=== PATIENT | female | born 1960 | race Caucasian/White ===

== ENCOUNTER → 2016-12-21 | Outpatient (CLI) | payer BC ==
--- NOTE | 2016-12-21 12:55 | XR ---
EXAMINATION TYPE: XR chest 2V DATE OF EXAM: 12/21/2016 11:56 AM COMPARISON: 10/18/2011 TECHNIQUE: PA and lateral views submitted. HISTORY: Shortness of breath and cough FINDINGS: The lungs are clear and there is no pneumothorax, pleural effusion, or focal pneumonia. Hypertrophi c change of the spine. No overt failure. IMPRESSION: 1. No acute process.
== END ==
LOC: RADXRMAIN 11:37
PROVIDERS: ATTEND Internal Medicine
DX: R05 Cough (principal); R06.02 Shortness of breath
CPT/HCPCS: 71020

== ENCOUNTER → 2017-03-05 | Outpatient (CLI) | payer BC ==
--- NOTE | 2017-03-05 14:52 | BD ---
EXAMINATION TYPE: MG DEXA axial skeleton. DATE OF EXAM: 03/05/2017 COMPARISON: NONE CLINICAL HISTORY: Z78.0 POST MENOPAUSAL WITHOUT HRT Height: 5 FT 2 1/2 IN Weight: 212 FRAX RISK QUESTIONS: Alcohol (3 or more units per day): NO Family History (Parent hip fracture): NO Glucocorticoids (More than 3mos): NO (Ex: prednisone, prednisolone, methylprednisolone, dexamethasone, and hydrocortisone). History of Fracture in Adulthood: NO Secondary Osteoporosis: 1. Type 1 Diabetes: NO 2. Hyperthyroidism: NO 3. Menopause before 45: NO 4. Malnutrition: NO 5. Chronic liver disease: NO Rheumatoid Arthritis: NO Current Tobacco Use: NO RISK FACTORS HISTORY OF: Family History of Osteoporosis: YES Active: YES Postmenopausal woman: TOTAL HYST AGE 47 Take estrogen and/or progesterone medications: YES How lon YRS MEDICATIONS: How Long: Additional Medications: PREMARIN,METFORMIN,LOSARTIN, XOLAIR INJECTION,GLIMEPERIDE, SINGULAIR Additional History: EXAM MEASUREMENTS: Bone mineral densitometry was performed using the [employer] System. Bone mineral density as measured about the Lumbar spine is: ----- L1-L4(G/cm2): 1.226 T Score Values are as follows: ----- L2: -0.2 ----- L3: -0.1 ----- L4: 0.8 ----- L1-L4: 0.3 Bone mineral density has: Increased 8.4% since study of: 2013 Bone mineral density about the R hip (g/cm2): 0.973 Bone mineral density about the L hip (g/cm2): 0.916 T Score values are as follows: -----R Neck: -0.5 -----L Neck: -0.9 -----R Total: 0.5 -----L Total: -0.1 Bone mineral density has: Increased 1.0% since study of: 2013 IMPRESSION: No evidence for osteoporosis or osteopenia. NOTE: T-SCORE=SD OF THE YOUNG ADULT MEAN.
--- NOTE | 2017-03-06 13:57 | MM ---
Reason for exam: screening (asymptomatic). Last mammogram was performed 1 year and 4 months ago. History: Patient is postmenopausal. Benign left mammotome panel of the left breast, May 16, 2010. Took hormonal contraceptives for 7 years. Taking estrogen for 8 years 6 months beginning at age 47. Took progesterone for 8 years 6 months beginning at age 47. Physical Findings: A clinical breast exam by your physician is recommended on an annual basis and results should be correlated with mammographic findings. MG Screening Mammo w CAD Bilateral CC and MLO view(s) were taken. Prior study comparison: November 11, 2015, bilateral MG screening mammo w CAD. September 30, 2013, [facility] DIGITAL RIGHT MAMMOGRAM w/CAD. The breast tissue is almost entirely fat. Finding: There are grouped/clustered calcifications in the right breast. Previous mammotome biopsy in the left breast. Asymmetric breast tissue in the left breast. Increase in number of calcifications since November 11, 2015 and September 30, 2013. ASSESSMENT: Incomplete: need additional imaging evaluation, BI-RAD 0 RECOMMENDATION: Special view mammogram of the right breast. [facility] will attempt to contact patient to return for supplemental views.
== END | disposition home or self-care (01) ==
LOC: RADMAMWWP 13:26
PROVIDERS: ATTEND Obstetrics & Gynecology
DX: Z12.31 Encounter for screening mammogram for malignant neoplasm of breast (principal); Z78.0 Asymptomatic menopausal state
CPT/HCPCS: 77080; G0202

== ENCOUNTER → 2017-03-15 | Outpatient (CLI) | payer BC ==
--- NOTE | 2017-03-15 14:02 | MM ---
Reason for exam: additional evaluation requested from abnormal screening. Last mammogram was performed less than 1 month ago. History: Patient is postmenopausal. Benign left mammotome panel of the left breast, May 16, 2010. Took hormonal contraceptives for 7 years. Taking estrogen for 8 years 6 months beginning at age 47. Took progesterone for 8 years 6 months beginning at age 47. Physical Findings: Nurse did not find any significant physical abnormalities on exam. MG 3D Work Up W/Cad RT CC and MLO view(s) were taken of the right breast. Prior study comparison: March 05, 2017, bilateral MG screening mammo w CAD. November 11, 2015, bilateral MG screening mammo w CAD. Finding: There are intermediate concern, suspicious, heterogeneous calcifications in the lower quadrant, middle position of the right breast. These results were verbally communicated with the patient and result sheet given to the patient on 03/15/17. ASSESSMENT: Suspicious, BI-RAD 4 RECOMMENDATION: Stereotactic core biopsy of the right breast. Called Dr. Gutierres with mammographic findings and has scheduled an appointment for the patient for 03/27/17 at 12:[address] Martinez. PRELIMINARY REPORT CALLED AND FAXED TO DR. MARTINEZ ON 03/15/17 /TP.
== END | disposition home or self-care (01) ==
LOC: RADMAMWWP 12:54
PROVIDERS: ATTEND Obstetrics & Gynecology
DX: R92.8 Other abnormal and inconclusive findings on diagnostic imaging of breast (principal)
CPT/HCPCS: G0206; G0279

== ENCOUNTER → 2017-04-02 | Day surgery (SDC) | payer BC ==
[2017-04-02 10:25] VITALS: BMI 36.3
[2017-04-02 11:52] VITALS: BP 130/80; PULSE 80; RESP 18; TEMP 98
--- NOTE | 2017-04-02 20:38 | PCN ---
PRE-PROCEDURE DIAGNOSIS: Suspicious mammogram; calcifications in right breast. POST-PROCEDURE DIAGNOSIS: Defer to Pathology. PROCEDURE: Mammotome biopsy and clip application. This patient presented with an abnormal mammogram of her right breast that showed suspicious new calcifications. The patient was taken to [facility] She was placed on the mammotome table in supine position. After coordinates were obtained by the radiologist, the skin was cleaned with Betadine. After infiltrating the skin with Marcaine 0.25% plain, the mammotome was advanced according to coordinates. Multiple cores were taken. X-rays of the cores showed the suspicious calcifications. Clip was placed for future identification of the area. X-rays showed the clip in good position. Patient tolerated the procedure well. DEISI
--- NOTE | 2017-04-03 12:30 | MM ---
EXAMINATION TYPE: MG stereo VAD BX RT DATE OF EXAM: 04/02/2017 COMPARISON: 03/15/2017 mammogram CLINICAL HISTORY: Indeterminate right breast calcifications for which stereotactic guided biopsy was recommended. TECHNIQUE: Stereotactic guided core biopsy of right breast. FINDINGS: The procedure of stereotactic guided core biopsy was explained to the patient. Benefits, a lternatives, and risks were discussed. An informed consent was then obtained. The shortness pathway for biopsy was chosen. Shortness pathway was inferior approach. I performed th e localization, then surgeon, Dr. Martinez performed the remainder of the procedure. A vacuum assi sted biopsy gun was used to obtain multiple core samples. The patient tolerated the procedure well without any immediate complication. The patient was kept in the radiology department for short stay after the procedure and then discharged home in stable condi tion. Targeted calcifications are identified in specimen mammogram. Post biopsy mammogram shows the clip to appear in satisfactory position relative to the targeted area of concern on the preprocedure images. IMPRESSION: SUCCESSFUL, UNCOMPLICATED STEREOTACTIC GUIDED CORE BIOPSY OF AREA OF CONCERN IN THE RIGHT BREAST, FUL L PATHOLOGY RESULTS TO FOLLOW.
== END ==
LOC: RADMAMWWP 09:56
PROVIDERS: ATTEND Surgery
DX: D24.1 Benign neoplasm of right breast (principal); N62 Hypertrophy of breast; R92.8 Other abnormal and inconclusive findings on diagnostic imaging of breast; N60.31 Fibrosclerosis of right breast; N60.01 Solitary cyst of right breast; N60.21 Fibroadenosis of right breast; N64.1 Fat necrosis of breast; N64.89 Other specified disorders of breast; Z88.0 Allergy status to penicillin; Z88.8 Allergy status to other drugs, medicaments and biological substances
CPT/HCPCS: 88305

== ENCOUNTER → 2017-11-23 | Outpatient (CLI) | payer BC ==
--- NOTE | 2017-11-23 08:49 | MM ---
Reason for exam: follow-up at short interval from prior study. Last mammogram was performed 8 months ago. History: Patient is postmenopausal. Benign MG stereo VAD BX RT of the right breast, April 02, 2017. Benign left mammotome panel of the left breast, May 16, 2010. Took hormonal contraceptives for 7 years. Taking estrogen for 8 years 6 months beginning at age 47. Took progesterone for 8 years 6 months beginning at age 47. Physical Findings: Nurse did not find any significant physical abnormalities on exam. MG 3D Diag Mammo W/Cad RT CC and MLO view(s) were taken of the right breast. Prior study comparison: March 15, 2017, right breast MG 3d work up w/cad RT. March 05, 2017, bilateral MG screening mammo w CAD. There are scattered fibroglandular densities. Previous mammotome biopsy in the right breast. There is no discrete abnormality. No significant new findings when compared with previous films. These results were verbally communicated with the patient and result sheet given to the patient on 11/23/17. ASSESSMENT: Benign, BI-RAD 2 RECOMMENDATION: Return to routine screening mammogram schedule for both breasts. Back on schedule.
== END | disposition home or self-care (01) ==
LOC: RADMAMWWP 08:03
PROVIDERS: ATTEND Obstetrics & Gynecology
DX: R92.8 Other abnormal and inconclusive findings on diagnostic imaging of breast (principal)
CPT/HCPCS: 77065; G0279

== ENCOUNTER 2018-01-04 06:50 | Day surgery (SDC) | payer BC ==
[2018-01-02 12:01] VITALS: BMI 37.4
[~2018-01-04 06:50] MED LIST: LACTATED RINGERS 1,000 ML IV SCH
[2018-01-04 07:16] VITALS: TEMP 98.1
[2018-01-04] MEDS ORDERED: LACTATED RINGERS 1,000 ML IV ONE (07:17)
[2018-01-04 07:19] LABS: Glucose,Whole Blood 165 mg/dL (75-99)
[2018-01-04] MEDS ORDERED: ONDANSETRON 4 MG/2 ML VIAL IVP ONE (07:29)
[2018-01-04] MEDS ORDERED: ONDANSETRON 4 MG/2 ML VIAL IVP STA (07:33)
[2018-01-04] MEDS ORDERED: PROPOFOL 10 MG/ML 20 ML VIAL IV ONE (07:37)
[2018-01-04] MEDS ORDERED: LIDOCAINE 1% INJ 10MG/ML (20 ML MDV) ONE (07:37)
--- NOTE | 2018-01-04 07:39 | P.GSHP ---
History of Present Illness H&P Date: 01/04/18 Chief Complaint: Colon cancer screening Patient here today for colonoscopy. Last colonoscopy performed 5 years ago. She had a hyperplastic polyp and a polyp that turned out to represent a hamartoma at that time. No bowel related complaints. No family history of colon cancer. Past Medical History Past Medical History: Asthma, Diabetes Mellitus, Hyperlipidemia, Hypertension, Thyroid Disorder History of Any Multi-Drug Resistant Organisms: None Reported Past Surgical History: Hysterectomy Additional Past Surgical History / Comment(s): left Bunion shaved in 2014, trigger thumb repair 2013 Past Anesthesia/Blood Transfusion Reactions: Family History of Problems w/ Anesthesia, Motion Sickness, Postoperative Nausea & Vomiting (PONV) Additional Past Anesthesia/Blood Transfusion Reaction / Comment(s): FAMILY- N & V Smoking Status: Never smoker - Past Family History Mother Family Medical History: Coronary Artery Disease (CAD) Additional Family Medical History / Comment(s): CABG Medications and Allergies Home Medications Medication Instructions Recorded Confirmed Type Albuterol Nebulized [Ventolin 1 applicate INHALATION QID PRN 11/05/14 01/04/18 History Nebulized] Albuterol Sulfate [Proair Hfa] 1 puff INHALATION QID PRN 11/05/14 01/04/18 History Glimepiride [Amaryl] 4 mg PO AC-BID 11/05/14 01/04/18 History Levothyroxine Sodium [Synthroid] 175 mcg PO QAM 11/05/14 01/04/18 History Losartan [Cozaar] 50 mg PO QAM 11/05/14 01/04/18 History Lovastatin [Mevacor] 40 mg PO HS 11/05/14 01/04/18 History Montelukast [Singulair] 10 mg PO HS 11/05/14 01/04/18 History Omalizumab [Xolair] 1 injection SQ QMONTH 11/05/14 01/04/18 History metFORMIN HCL 1,000 mg PO BID 03/28/17 01/04/18 History Doxycycline Hyclate [Doryx] 100 mg PO BID 01/02/18 01/04/18 History Allergies Allergy/AdvReac Type Severity Reaction Status Date / Time adhesive Allergy Mild Rash/Hives Verified 01/04/18 07:14 Penicillins Allergy Mild Rash/Hives. Verified 01/04/18 07:14 SWELLING. povidone-iodine Allergy Rash/Hives Verified 01/04/18 07:14 [From Betadine] soap [From Betadine] Allergy Rash/Hives Verified 01/04/18 07:14 Surgical - Exam Vital Signs Temp Pulse Resp BP Pulse Ox 98.1 F 84 18 125/76 95 01/04/18 07:14 01/04/18 07:14 01/04/18 07:14 01/04/18 07:14 01/04/18 07:14 Physical exam: General: Well-developed, well-nourished HEENT: Normocephalic, sclerae nonicteric Abdomen: Nontender, nondistended Extremities: No edema Neuro: Alert and oriented Results - Labs Abnormal Lab Results - Last 24 Hours (Table) 01/04/18 Range/Units 07:15 POC Glucose (mg/dL) 165 H (75-99) mg/dL Assessment and Plan (1) Colon cancer screening Narrative/Plan: Will proceed with colonoscopy at this time. Current Visit: Yes Status: Acute Code(s): Z12.11 - ENCOUNTER FOR SCREENING FOR MALIGNANT NEOPLASM OF COLON SNOMED Code(s): 129619071
--- NOTE | 2018-01-04 07:56 | P.PCN ---
Date of Procedure: 01/04/18 Procedure(s) Performed: PREOPERATIVE DIAGNOSIS: Colon cancer screening POSTOPERATIVE DIAGNOSIS: Poor prep PROCEDURE: Colonoscopy ANESTHESIA: MAC SURGEON: Maxwell Jimenez M.D. SPECIMENS: None ENDOSCOPIC PROCEDURE: The patient was placed on the endoscopy table in the left decubitus position. The Olympus colonoscope was inserted into the anus and passed under direct visualization to the base of the cecum. The appendiceal orifice was visualized. From that point the scope was slowly withdrawn inspecting all surfaces carefully. The patient's prep was suboptimal with retained stool seen scattered throughout. Much of the stool was thick enough that this could not be irrigated and cleaned. No large polyps or masses were seen throughout the cecum, ascending, transverse, descending, sigmoid and rectum. There was no diverticulosis noted. Digital rectal examination was normal. The patient was taken to the recovery room in stable condition per anesthesia guidelines. RECOMMENDATIONS: Increase fiber. Consider short-term follow-up given the poor prep today.
[2018-01-04 08:03] VITALS: RESP 16
[2018-01-04 08:15] VITALS: BP 121/70; PULSE 91
== END 2018-01-04 08:40 | disposition home or self-care (01) ==
LOC: ORWHC2ENDO 06:50
PROVIDERS: ATTEND Surgery
DX: Z12.11 Encounter for screening for malignant neoplasm of colon (principal); J45.909 Unspecified asthma, uncomplicated; E11.9 Type 2 diabetes mellitus without complications; E78.5 Hyperlipidemia, unspecified; I10 Essential (primary) hypertension; E07.9 Disorder of thyroid, unspecified; Z79.84 Long term (current) use of oral hypoglycemic drugs; Z79.890 Hormone replacement therapy; Z79.899 Other long term (current) drug therapy; Z79.2 Long term (current) use of antibiotics; Z88.0 Allergy status to penicillin; Z91.048 Other nonmedicinal substance allergy status; Z91.09 Other allergy status, other than to drugs and biological substances
CPT/HCPCS: J2405; J2001; J2704; G0121

== ENCOUNTER → 2019-03-12 | Outpatient (CLI) | payer BC ==
--- NOTE | 2019-03-12 13:11 | MM ---
Reason for exam: screening (asymptomatic). Last mammogram was performed 1 year and 4 months ago. History: Patient is postmenopausal. Benign MG stereo VAD BX RT of the right breast, April 02, 2017. Benign left mammotome panel of the left breast, May 16, 2010. Took hormonal contraceptives for 7 years. Taking estrogen for 8 years 6 months beginning at age 47. Took progesterone for 8 years 6 months beginning at age 47. Physical Findings: A clinical breast exam by your physician is recommended on an annual basis and results should be correlated with mammographic findings. MG 3D Screening Mammo W/Cad Bilateral CC and MLO view(s) were taken. Prior study comparison: November 23, 2017, right breast MG 3d diag mammo w/cad RT. March 15, 2017, right breast MG 3d work up w/cad RT. There are scattered fibroglandular densities. Previous mammotome biopsy in the right and left breast. Asymmetric breast tissue left breast at clip upper outer quadrant. There is no discrete abnormality. ASSESSMENT: Benign, BI-RAD 2 RECOMMENDATION: Routine screening mammogram of both breasts in 1 year.
== END | disposition home or self-care (01) ==
LOC: RADMAMWWP 07:40
PROVIDERS: ATTEND Obstetrics & Gynecology
DX: Z12.31 Encounter for screening mammogram for malignant neoplasm of breast (principal)
CPT/HCPCS: 77063; 77067

== ENCOUNTER → 2021-07-28 | Outpatient (CLI) | payer BC ==
--- NOTE | 2021-08-01 10:23 | MM ---
Reason for exam: screening (asymptomatic). Last mammogram was performed 1 year and 3 months ago. History: Patient is postmenopausal. Benign MG stereo VAD BX RT of the right breast, April 02, 2017. Benign left mammotome panel of the left breast, May 16, 2010. Took hormonal contraceptives for 7 years. Taking estrogen for 12 years beginning at age 47. Took progesterone for 12 years beginning at age 47. Physical Findings: A clinical breast exam by your physician is recommended on an annual basis and results should be correlated with mammographic findings. MG 3D Screening Mammo W/Cad Bilateral CC and MLO view(s) were taken. Prior study comparison: April 16, 2020, bilateral MG 3d screening mammo w/cad. March 12, 2019, bilateral MG 3d screening mammo w/cad. There are scattered fibroglandular densities. Previous mammotome biopsy in the right and left breast. Focal asymmetry, stable on left. ASSESSMENT: Benign, BI-RAD 2 RECOMMENDATION: Routine screening mammogram of both breasts in 1 year.
== END | disposition home or self-care (01) ==
LOC: RADMAMWWP 13:21
PROVIDERS: ATTEND Obstetrics & Gynecology
DX: Z12.31 Encounter for screening mammogram for malignant neoplasm of breast (principal)
CPT/HCPCS: 77063; 77067

== ENCOUNTER → 2022-07-31 | Outpatient (CLI) | payer BC ==
--- NOTE | 2022-07-31 10:31 | BD ---
EXAMINATION TYPE: Axial Bone Density DATE OF EXAM: 07/31/2022 COMPARISON: 03.05.2017 CLINICAL HISTORY: 61 years year old Female. ICD-10 CODE: N95.1 MENOPAUSAL Height: 62 Weight: 187 FRAX RISK QUESTIONS: Glucocorticoids (More than 3mos): YES (Ex: prednisone, prednisolone, methylprednisolone, dexamethasone, and hydrocortisone). RISK FACTORS HISTORY OF: Family History of Osteoporosis: YES NO FX Postmenopausal woman: TOTAL HYST AT 46 YRS OLD Take estrogen and/or progesterone medications: YES SINCE 46 YRS OLD...STILL TAKING How lon YRS Hyperparathyroidism: NO Adrenal Insufficiency: NO MEDICATIONS: Prednisone or other steroids: YES, FOR ASTHMA FOR ABOUT 15 YRS Thyroid Medications: YES, FOR ABOUT 25 YRS ON SYNTHROID Additional Medications: BP MEDS, METFORMIN, RYBELSIS, GLIMEPIRIDE, STATIN FOR CHOLESTEROL, VIT D AN D CALCIUM, Additional History: DIABETIC, ASTHMA, THYROID, HYPERTENSION, CHOLESTEROL, EXAM MEASUREMENTS: Bone mineral densitometry was performed using the [employer] System. Bone mineral density as measured about the Lumbar spine is: ----- L1-L4(G/cm2): 1.202 T Score Values are as follows: ----- L1: 0.4 ----- L2: -0.2 ----- L3: -0.8 ----- L4: 1.0 ----- L1-L4: 0.2 Bone mineral density has: Decreased -1.2% since study of: 03.05.2017 Bone mineral density about the R hip (g/cm2): 0.986 Bone mineral density about the L hip (g/cm2): 0.948 T Score values are as follows: -----R Neck: -0.5 -----L Neck: -0.9 -----R Total: -0.2 -----L Total: -0.5 Bone mineral density has: Decreased -6.0% since study of: 03.05.2017 FRAX%s: The graph provided illustrates a 11.4% chance for a major osteoporotic fx and a 0.8% chance f or the hips probability for fx in 10 years time. IMPRESSION: Normal (Values between +1 and -1 indicate normal bone mass). Consider repeating this study in 5 year s or sooner if there is some new clinical indication. NOTE: T-SCORE=SD OF THE YOUNG ADULT MEAN.
--- NOTE | 2022-08-01 08:29 | MM ---
Reason for Exam: Screening (asymptomatic). Last screening mammogram was performed 12 month(s) ago. Patient History: Menarche at age 10. First Full-Term at age 24. Left ovary removed at age 47. Right ovary removed at age 47. Hysterectomy at age 47. Postmenopausal. Currently using Estrogen, beginning at age 47 for 12 years. Progesterone, starting at age 47 for 12 years. Patient used Hormonal Contraceptives for 7 years. 04/02/2017, Benign Core Biopsy on the right side. 05/16/2010, Benign Core Biopsy on the left side. Risk Values: Yamilex 5 year model risk: 2.6%. NCI Lifetime model risk: 10.9%. Prior Study Comparison: 03/12/2019 Bilateral Screening Mammogram, [facility]. 04/16/2020 Bilateral Screening Mammogram, [facility]. 07/28/2021 Bilateral Screening Mammogram, [facility]. Tissue Density: There are scattered fibroglandular densities. Findings: Analyzed By CAD. There is no suspicious group of microcalcifications or new suspicious mass in either breast. Overall Assessment: Negative, BI-RAD 1 Management: Screening Mammogram of both breasts in 1 year. A clinical breast exam by your physician is recommended on an annual basis and results should be correlated with mammographic findings. Electronically signed and approved by: Juan C Paul M.D. Radiologis
== END | disposition home or self-care (01) ==
LOC: RADMAMWWP 08:28
PROVIDERS: ATTEND Obstetrics & Gynecology
DX: Z12.31 Encounter for screening mammogram for malignant neoplasm of breast (principal); N95.1 Menopausal and female climacteric states; I10 Essential (primary) hypertension; E11.9 Type 2 diabetes mellitus without complications; Z79.52 Long term (current) use of systemic steroids; Z90.721 Acquired absence of ovaries, unilateral
CPT/HCPCS: 77063; 77067; 77080

== ENCOUNTER → 2023-08-21 | Outpatient (CLI) | payer BC ==
--- NOTE | 2023-08-22 13:19 | MM ---
Reason for Exam: Screening (asymptomatic). Last mammogram was performed 1 year(s) and 1 month(s) ago. Patient History: Menarche at age 10. First Full-Term at age 24. Left ovary removed at age 47. Right ovary removed at age 47. Hysterectomy at age 47. Postmenopausal. Currently using Estrogen, beginning at age 47 for 12 years. Progesterone, starting at age 47 for 12 years. Patient used Hormonal Contraceptives for 7 years. 04/02/2017, Benign Core Biopsy on the right side. 05/16/2010, Benign Core Biopsy on the left side. Risk Values: Yamilex 5 year model risk: 2.7%. NCI Lifetime model risk: 10.6%. Prior Study Comparison: 04/16/2020 Bilateral Screening Mammogram, [facility]. 07/28/2021 Bilateral Screening Mammogram, [facility]. 07/31/2022 Bilateral MG 3D screening mammo w/cad, [facility]. Tissue Density: The breast tissue is almost entirely fat. Findings: Analyzed By CAD. . Bilateral breast biopsy clips. There is no suspicious group of microcalcifications or new suspicious mass. Overall Assessment: Benign, BI-RAD 2 Management: Screening Mammogram of both breasts in [address] [facility] will attempt to contact patient to return for supplemental views and ultrasound if indicated. Patient should continue monthly self-breast exams. A clinical breast exam by your physician is recommended on an annual basis. This exam should not preclude additional follow-up of suspicious palpable abnormalities. Note on Yamilex scores and lifetime risk: 1. A Yamilex score greater than 3% is considered moderate risk. If this is the case, consider specialist referral to assess eligibility for a risk reducing agent. 2. If overall lifetime risk for the development of breast cancer is 20% or higher, the patient may qualify for future screening with alternating mammogram and breast MRI. Electronically signed and approved by: Galen Cody DO
== END | disposition home or self-care (01) ==
LOC: RADMAMWWP 11:15
PROVIDERS: ATTEND Obstetrics & Gynecology
DX: Z12.31 Encounter for screening mammogram for malignant neoplasm of breast (principal); Z78.0 Asymptomatic menopausal state
CPT/HCPCS: 77063; 77067

== ENCOUNTER → 2024-11-05 | Outpatient (CLI) | payer MEDICARE ==
--- NOTE | 2024-11-05 10:20 | MM ---
Reason for Exam: Screening (asymptomatic). Last mammogram was performed 1 year(s) and 2 month(s) ago. Patient History: Menarche at age 10. First Full-Term at age 24. Left ovary removed at age 47. Right ovary removed at age 47. Hysterectomy at age 47. Postmenopausal. Currently using Estrogen, beginning at age 47 for 12 years. Progesterone, starting at age 47 for 12 years. Patient used Hormonal Contraceptives for 7 years. 04/02/2017, Benign Core Biopsy on the right side. 05/16/2010, Benign Core Biopsy on the left side. Risk Values: Yamilex 5 year model risk: 2.8%. NCI Lifetime model risk: 9.9%. Prior Study Comparison: 07/28/2021 Bilateral Screening Mammogram, [facility]. 07/31/2022 Bilateral MG 3D screening mammo w/cad, [facility]. 08/21/2023 Bilateral MG 3D screening mammo w/cad, [facility]. Tissue Density: There are scattered areas of fibroglandular density. Findings: Analyzed By CAD. Mammotome biopsy clips bilaterally are redemonstrated. There are few scattered tiny benign appearing calcifications bilaterally again seen. There is no suspicious new group of microcalcifications or new suspicious mass in either breast. Overall Assessment: Benign, BI-RAD 2 Management: Screening Mammogram of both breasts in 1 year. . Patient should continue monthly self-breast exams. A clinical breast exam by your physician is recommended on an annual basis. This exam should not preclude additional follow-up of suspicious palpable abnormalities. Note on Yamilex scores and lifetime risk: 1. A Yamilex score greater than 3% is considered moderate risk. If this is the case, consider specialist referral to assess eligibility for a risk reducing agent. 2. If overall lifetime risk for the development of breast cancer is 20% or higher, the patient may qualify for future screening with alternating mammogram and breast MRI. [facility], , 11/05/2024 10:17 AM. Electronically signed and approved by: Nito Boland M.D.
== END | disposition home or self-care (01) ==
LOC: RADMAMWWP 09:25
PROVIDERS: ATTEND Family Medicine
DX: Z12.31 Encounter for screening mammogram for malignant neoplasm of breast (principal); R92.323 Mammographic fibroglandular density, bilateral breasts; Z78.0 Asymptomatic menopausal state; Z92.0 Personal history of contraception
CPT/HCPCS: 77063; 77067